=== PATIENT | female | born 1970 | race Caucasian/White ===

== ENCOUNTER 2023-01-19 07:13 | Emergency (ER) | payer BC ==
[~2023-01-19] VITALS: Ht 167.6 cm; Wt 95.8 kg
[2023-01-19] MEDS ORDERED: ondansetron 4mg rapidly disintigrating tab PO ONE (07:40)
[2023-01-19] MEDS ORDERED: fentaNYL/PF 50MCG/1 ML 2ML syringe IM ONE ×2 (07:40→07:50)
[2023-01-19] MEDS ORDERED: BUPIVAcaine 0.25% w/Epi /PF 30ml vial SQ ONE (07:50)
[2023-01-19] MEDS ORDERED: BUPIVAcaine HCl 0.25%/EPInephrine 1:200,000 inj. 10 ML VIAL SQ ONE (08:10)
[2023-01-19 08:17] VITALS: BP 136/88
[2023-01-19] MEDS ORDERED: SULF1TAB45 PO (09:40)
[2023-01-19] MEDS ORDERED: AMOX-580 PO (09:40)
[2023-01-19] MEDS ORDERED: PER5325T PO (09:40)
[2023-01-19] MEDS ORDERED: sulfamethoxazole/trimethoprim DS (800/160mg) tablet PO ONE (09:45)
[2023-01-19] MEDS ORDERED: amox tr/potassium clavulanate 875/125mg TAB PO ONE (09:45)
== END 2023-01-19 10:10 | disposition home or self-care (01) ==
LOC: ER 07:14
DX: K61.1 Rectal abscess (principal); Z88.5 Allergy status to narcotic agent; Z79.1 Long term (current) use of non-steroidal anti-inflammatories (NSAID); Z79.2 Long term (current) use of antibiotics
CPT/HCPCS: 96372; 99284; A6266; J3010